=== PATIENT | female | born 1955 | race Caucasian/White ===

== ENCOUNTER 2020-08-20 17:16 | Emergency (ER) | payer OTHER, MEDICARE | END 2020-08-20 19:07 | disposition home or self-care (01) | LOC: JVIRT 17:16 | DX: Z20.822 Contact with and (suspected) exposure to COVID-19 (principal) | CPT/HCPCS: C9803; G2012-GT; U0003 ==

== ENCOUNTER 2020-08-25 10:39 | Emergency (ER) | payer OTHER, MEDICARE ==
[2020-08-25 11:10] VITALS: BMI 24.3
[2020-08-25] MEDS ORDERED: BAMLANIVIMAB 700 MG in SODIUM CHLORIDE 180 ML IVPB ONE (11:30)
[2020-08-25] MEDS ORDERED: BAMLANIVIMAB 700 MG in SODIUM CHLORIDE 250 ML IVPB ONE (11:57)
[2020-08-25 12:45] LABS: HEMATOCRIT 41.2 % (32.4-45.2); HEMOGLOBIN 14.3 GM/dL (10.7-15.3); MCH 35.6 pg (25.7-33.7); MCHC 34.7 g/dl (32.0-36.0); MEAN CELL VOLUME 102.5 fl (80-96); MEAN PLT VOLUME 10.2 fl (7.5-11.1); PLATELET COUNT 164 K/MM3 (134-434); RBC 4.02 M/mm3 (3.60-5.2); RDW 13.6 % (11.6-15.6)
[2020-08-25 12:51] LABS: POTASSIUM 3.8 mmol/L (3.5-5.1)
[2020-08-25 12:54] LABS: BLOOD UREA NITROGEN 13.8 mg/dL (7-18); CALCIUM 9.2 mg/dL (8.5-10.1)
[2020-08-25 12:57] LABS: CREATININE 0.6 mg/dL (0.55-1.3)
[2020-08-25 15:33] VITALS: BP 128/95; PULSE 68; TEMP 98.1
== END 2020-08-25 15:35 | disposition home or self-care (01) ==
LOC: JER 10:39 → JCOVINFU 10:39
DX: U07.1 COVID-19 (principal)
CPT/HCPCS: 36415; 80048; 85027; 99284-25; M0239; Q0239